=== PATIENT | female | born 1965 | race Caucasian/White ===

== ENCOUNTER 2017-02-11 10:08 | Observation (INO) | payer OTHER ==
[~2017-02-11] VITALS: Ht 167.6 cm; Wt 154.0 kg
[2017-02-11 11:24] LABS: HEMATOCRIT 44.6 % (36.0-46.0); MCH 28.7 PG (29.0-34.0); MCHC 33.4 G/DL (30.0-36.0); MCV 85.9 FL (83-99); MEAN PLAT.VOLUME 9.4 uM^3 (9.5-12.4); PLATELET COUNT 211 K/uL (156-360); RBC DIS.WIDTH-CV 13.2 % (11.8-14.6); RBC DIS.WIDTH-SD 41.3 % (39-53); RED BLOOD COUNT 5.19 M/uL (3.80-5.20); WHITE BLOOD COUNT 6.1 K/uL (4.1-10.2)
[2017-02-11 11:33] LABS: CHLORIDE 103 mEq/L (99-109); POTASSIUM 3.7 mEq/L (3.7-5.4); SODIUM 143 mEq/L (136-147)
[2017-02-11 11:35] LABS: GLUCOSE 210 mg/dL (70-99)
[2017-02-11 11:36] LABS: ANION GAP 13 MEQ/L (2-14)
[2017-02-11 11:39] LABS: GFR ESTIMATE (CALCULATED) > 59 mL/min/
[2017-02-11 11:40] LABS: UREA NITROGEN (BUN) 9 mg/dL (9-23)
[2017-02-11 11:44] LABS: TROP-I INTERPRETATION NEGATIVE; TROPONIN-I < 0.01 ng/mL (0.0-0.30)
[2017-02-11 14:46] LABS: TROP-I INTERPRETATION NEGATIVE; TROPONIN-I < 0.01 ng/mL (0.0-0.30)
[2017-02-11 19:11] LABS: TOTAL BILIRUBIN 0.5 mg/dL (0.0-1.0)
[2017-02-11 19:12] LABS: ALKALINE PHOSPHATASE 90 IU/L (3-129)
[2017-02-11 19:15] LABS: DIRECT BILIRUBIN 0.2 mg/dL (0.0-0.3)
[2017-02-11 19:16] LABS: LIPASE 29 U/L (1.0-51.0)
[2017-02-11] MEDS ORDERED: DICLOFENAC SOD100 MG PO (19:28)
[2017-02-11] MEDS ORDERED: ASPIRIN325 MG PO (19:29)
[2017-02-11] MEDS ORDERED: LOTREL 5/201 CAPSULE PO (19:29)
[2017-02-11 21:20] VITALS: BP 145/93
[2017-02-11 21:30] LABS: TROP-I INTERPRETATION NEGATIVE; TROPONIN-I < 0.01 ng/mL (0.0-0.30)
[2017-02-11 21:35] LABS: ADD MIUA? YES; BILIRUBIN NEGATIVE; BLOOD NEGATIVE; COLOR YELLOW ((YELLOW)); GLUCOSE (STRIP) NEGATIVE; KETONES 20; LEUKOCYTES SMALL; PROTEIN (STRIP) 100; SPECIFIC GRAVITY 1.017 (1.000-1.030); UROBILINOGEN 0.2 MG/DL (0.2-1.0)
[2017-02-11 22:16] LABS: AMPHETAMINES QUANT VALUE 0 NG/ML; BARBITUATES QUANT VALUE 0 NG/ML; BENZODIAZEPINES QUANT VALUE 0 NG/ML; BENZODIAZEPINES, URINE SCREEN Negative (200 ng/mL); MARIJUANA QUANT VALUE 0 NG/ML; OPIATES QUANTITATIVE VALUE 0 NG/ML; PHENCYCLIDINE QUANT VALUE 0 NG/ML
[2017-02-11 22:33] LABS: RED BLOOD CELLS NONE SEEN /HPF (0-5); WHITE BLOOD CELLS 15-20 /HPF (0-5)
[2017-02-11 22:34] LABS: BACTERIA 3+ /HPF; EPITHELIAL CELLS 1+ /HPF; MUCUS NONE SEEN /LPF; UCUL ADDED? YES
[2017-02-11 22:35] LABS: CASTS NONE SEEN /LPF; CRYSTALS NONE SEEN
[2017-02-11 22:47] LABS: NITRITE POSITIVE
[2017-02-11 23:50] VITALS: BP 126/61
[2017-02-12 03:56] VITALS: BP 132/82
[2017-02-12 04:51] LABS: TROP-I INTERPRETATION NEGATIVE; TROPONIN-I < 0.01 ng/mL (0.0-0.30)
[2017-02-12 05:01] LABS: HDL CHOLESTEROL 36 MG/DL (Desirable>=50); LDL CHOLESTEROL 139 mg/dL (Desirable<100); NON-HDL CHOLESTEROL 177 mg/dL (Desirable<160); TOTAL CHOLESTEROL 213 mg/dL (Desirable<200); TRIGLYCERIDES 192 MG/DL (Normal: <150)
[2017-02-12 07:23] LABS: Estimated Average Glucose 200 mg/dL (70-123); HEMOGLOBIN A1c (GLYCOHEMOGLOB) 8.6 % HGB (Below 5.7)
[2017-02-12 08:45] VITALS: BP 138/84
[2017-02-12] MEDS ORDERED: LOPRESSOR25 MG PO (11:39)
[2017-02-12] MEDS ORDERED: BACTRIM,SEPT1 TABLET PO (11:57)
== END 2017-02-12 12:28 | disposition home or self-care (01) ==
LOC: EME 10:08 → EDOF 19:12 → 5WEST 19:12 → EDOF 19:12 → 5WEST 21:10
PROVIDERS: Hospitalist; Internal Medicine; Physician Assistant; Physician Assistant Medical
DX: R07.2 Precordial pain (principal); Z86.711 Personal history of pulmonary embolism; E78.5 Hyperlipidemia, unspecified; I10 Essential (primary) hypertension; M54.5 Low back pain; R10.13 Epigastric pain; Z91.041 Radiographic dye allergy status; E66.01 Morbid (severe) obesity due to excess calories; G47.33 Obstructive sleep apnea (adult) (pediatric); Z91.19 Patient's noncompliance with other medical treatment and regimen; Z86.718 Personal history of other venous thrombosis and embolism; Z68.43 Body mass index [BMI] 50.0-59.9, adult; I16.0 Hypertensive urgency; E11.65 Type 2 diabetes mellitus with hyperglycemia; N39.0 Urinary tract infection, site not specified; R06.02 Shortness of breath
CPT/HCPCS: 71020; 74176; 78582; 80048; 80061; 80076; 80306 90; 81003; 82948; 83036; 83690; 84484; 85027; 85379; 87077; 87086; 87186; 93005; 93970; 99281; 99285; A9540; A9567; G0378; J0696; J1650; J2405; J7030; J7050

== ENCOUNTER 2017-09-07 15:02 | Emergency (ER) | payer OTHER ==
[~2017-09-07] VITALS: Ht 165.1 cm; Wt 152.5 kg
[~2017-09-07 15:02] MED LIST: ASPIRIN325 MG PO; BACTRIM,SEPT1 TABLET PO; DICLOFENAC SOD100 MG PO; LOPRESSOR25 MG PO; LOTREL 5/201 CAPSULE PO
[2017-09-07 17:44] LABS: HEMATOCRIT 43.4 % (36.0-46.0); HEMOGLOBIN 14.6 G/DL (11.9-15.5); MCH 28.6 PG (29.0-34.0); MCHC 33.6 G/DL (30.0-36.0); MCV 85.1 FL (83-99); PLATELET COUNT 280 K/uL (156-360); RBC DIS.WIDTH-CV 12.9 % (11.8-14.6); RBC DIS.WIDTH-SD 40.2 % (39-53); WHITE BLOOD COUNT 9.5 K/uL (4.1-10.2)
[2017-09-07 17:56] LABS: CHLORIDE 100 mEq/L (99-109); POTASSIUM 4.3 mEq/L (3.7-5.4); SODIUM 134 mEq/L (136-147)
[2017-09-07 18:01] LABS: GLUCOSE 230 mg/dL (70-99)
[2017-09-07 18:04] LABS: TROP-I INTERPRETATION NEGATIVE; TROPONIN-I < 0.01 ng/mL (0.0-0.30)
[2017-09-07 18:05] LABS: CREATININE 0.8 mg/dL (0.6-1.3); GFR ESTIMATE (CALCULATED) > 59 mL/min/
[2017-09-07 18:06] LABS: UREA NITROGEN (BUN) 23 mg/dL (9-23)
[2017-09-07 19:58] LABS: QUANTITATIVE HCG < 4.0 MIU/ML
[2017-09-07 20:44] LABS: TROP-I INTERPRETATION NEGATIVE; TROPONIN-I < 0.01 ng/mL (0.0-0.30)
[2017-09-07] MEDS ORDERED: AUGMENTIN875 MG PO (21:38)
[2017-09-07] MEDS ORDERED: PREDNISONE10 M1 PO (21:38)
[2017-09-07] MEDS ORDERED: VENTOLIN HFA18 GM IH (21:38)
[2017-09-07 21:57] VITALS: BP 107/88
== END 2017-09-07 21:57 | disposition left against medical advice (07) ==
LOC: EME 15:02
PROVIDERS: Physician Assistant
DX: R06.00 Dyspnea, unspecified (principal); R00.0 Tachycardia, unspecified; I10 Essential (primary) hypertension; E78.5 Hyperlipidemia, unspecified; E11.9 Type 2 diabetes mellitus without complications; M19.90 Unspecified osteoarthritis, unspecified site; G43.909 Migraine, unspecified, not intractable, without status migrainosus; F41.9 Anxiety disorder, unspecified; Z87.891 Personal history of nicotine dependence; Z79.82 Long term (current) use of aspirin; Z86.711 Personal history of pulmonary embolism; Z90.49 Acquired absence of other specified parts of digestive tract; Z91.041 Radiographic dye allergy status
CPT/HCPCS: 71046; 80048; 83880; 84484; 84702; 85027; 85379; 87502; 93005; 93970; 94640; 99281; 99285